=== PATIENT | female | born 1980 | race Caucasian/White ===

== ENCOUNTER 2017-05-08 07:26 | Emergency (ER) | payer MEDICAID ==
[~2017-05-08] VITALS: Ht 152.4 cm; Wt 77.0 kg
[~2017-05-08 07:26] MED LIST: ALBU18HF INHALATION; AZIT250T94 PO; PRED20TA PO
[2017-05-08 07:31] VITALS: Ht 152.4 cm; Wt 77.0 kg
[2017-05-08] MEDS ORDERED: FLUORESCEIN STRIP LEFT EYE ONE (08:00)
[2017-05-08] MEDS ORDERED: HYDR-845 PO (08:30)
[2017-05-08] MEDS ORDERED: POLY10DR19 BOTH EYES (08:30)
[2017-05-08] MEDS ORDERED: hydrOXYzine HCL 25 MG TAB PO ONE (08:30)
--- NOTE | 2017-05-08 08:33 | ERD ---
ER Documentation Chief Complaint Date/Time DATE: 05/08/17 TIME: 08:31 Chief Complaint RIGHT EYE REDNESS WITH DRAINAGE HPI This 36-year-old female presents for eye redness that began around 8:00 yesterday and is been very itchy. She does not think that she struck her eye with anything and does not have pain mortise itchiness. This morning she noticed that the patient has had spread to the left eye as well as some of the redness. She had a some discharge with some crustiness this morning. Her vision is not affected. ROS All systems reviewed and are negative except as per history of present illness. Medications Home Meds Active Scripts Hydroxyzine Hcl* (Atarax*) 50 Mg Tab, 50 MG PO Q8H Y for ITCHING, #14 TAB Prov:MARTHA RAMÍREZ DO 05/08/17 Polymyxin B Sulfate-TMP* (Polymyxin B-TMP Eye Drops*) 10 Ml Drops, 1 DROP BOTH EYES QID for 7 Days, EA Prov:MARTHA RAMÍREZ DO 05/08/17 Albuterol Sulfate* (Ventolin HFA*) 18 Gm Hfa.aer.ad, 2 PUFF INHALATION Q4H, #1 INHALER Prov:JHONY BISWAS 11/21/15 Prednisone* (Prednisone*) 20 Mg Tab, 40 MG PO DAILY for 4 Days, TAB Prov:JHONY BISWAS 11/21/15 Azithromycin* (Zithromax*) 250 Mg Tablet, 250 MG PO .ZPACK DIRECTED, #6 TAB TAKE 500 MG (2 TABS) THE FIRST DAY THEN 250 MG (1 TAB) DAYS 2-5 Prov:JHONY BISWAS 11/21/15 Allergies Allergies: Coded Allergies: No Known Allergy (Unverified , 05/08/17) PMhx/Soc History of Surgery: Yes (C SECTION ) Anesthesia Reaction: No Hx Neurological Disorder: No Hx Respiratory Disorders: No Hx Cardiac Disorders: Yes (htn) Hx Psychiatric Problems: No Hx Miscellaneous Medical Probl: No Hx Alcohol Use: Yes Hx Substance Use: No Hx Tobacco Use: No Physical Exam Vitals Vital Signs Date Time Temp Pulse Resp B/P Pulse Ox O2 Delivery O2 Flow Rate FiO2 05/08/17 07:31 98.0 79 18 143/86 98 Physical Exam Const: [] No distress Head: Atraumatic Eyes: Erythematous conjunctiva with leyla-limbic sparing of the right eye, medial conjunctival injection of the left eye. On fluorescein staining in Peridot's exam there is no fluorescein uptake consistent with any corneal abrasion or laceration. Normal funduscopic exam. ENT: Normal External Ears, Nose and Mouth. Results 24 hrs Current Medications Medications (Trade) Dose Ordered Sig/Edelmira Route PRN Reason Start Time Stop Time Status Last Admin Dose Admin Fluorescein Sodium (Pipcb-S-Pylsj) 1 strip ONCE ONCE LEFT EYE 05/08/17 08:00 05/08/17 08:01 DC Hydroxyzine HCl (Atarax) 25 mg ONCE ONCE PO 05/08/17 08:30 05/08/17 08:31 Procedures/MDM Infectious conjunctivitis. Going to give patient Atarax for itching. 25 mg given the emergency room also given a prescription for Atarax as well as for Polytrim eyedrops. Departure Diagnosis: Primary Impression: Conjunctivitis of both eyes Condition: Stable Patient Instructions: Conjunctivitis Caused by Infection Additional Instructions: Llame al doctor MAANA y wally wendy CAROL PARA DENTRO DE 2-3 STONER.Dgale a la secretaria que nosotros le instruimos hacer esta carol.Avise o llame si greene condicin se empeora antes de la carol. Regresa aqui si peor o no mejor. MARTHA RAMÍREZ DO May 08, 2017 08:33
== END 2017-05-08 09:03 | disposition home or self-care (01) ==
LOC: FTE 07:26
DX: H10.9 Unspecified conjunctivitis (principal); I10 Essential (primary) hypertension
CPT/HCPCS: Z7610 ×2; 99284

== ENCOUNTER 2018-10-28 09:09 | Emergency (ER) | payer MEDICAID ==
[~2018-10-28] VITALS: Ht 162.6 cm; Wt 75.3 kg
[~2018-10-28 09:09] MED LIST changes: +AZIT250T PO; -AZIT250T94 PO; +HYDR-845 PO; +POLY10DR19 BOTH EYES
[2018-10-28 09:11] VITALS: Ht 162.6 cm; Wt 75.3 kg
[2018-10-28] MEDS ORDERED: ONDANSETRON (ODT) 4 MG TAB ODT STA (09:23)
[2018-10-28] MEDS ORDERED: NICARDipine HCL 30 MG CAPSULE PO ONE (09:30)
[2018-10-28] MEDS ORDERED: HYDROCODONE/APAP (10/325) TAB PO ONE (09:30)
[2018-10-28] MEDS ORDERED: MECLIZINE 12.5 MG TAB PO ONE (09:30)
[2018-10-28] MEDS ORDERED: IBUP-1542 PO (11:55)
[2018-10-28 12:01] VITALS: BP 109/61; PULSE 79; RESP 20
--- NOTE | 2018-10-28 13:13 | ERD ---
ER Documentation Chief Complaint Chief Complaint HEADACHE , DIZZINESS , NAUSEA X 2 DAYS H/O HTN , DIDN'T TOOK MEDS TODAY HPI Patient is a 37-year-old female with hypertension who presents with dizziness. She also has a headache. She said the symptoms started yesterday but have been worsening. She tried Tylenol. She has no fevers but reported chills. She has nausea but no vomiting. She did not take her blood pressure medications this m orning. Upon review of old medical records this is the patient's fourth visit to the ER since 2016. She does not know the name of her primary doctor. ROS All systems reviewed and are negative except as per history of present illness. Medications Home Meds Active Scripts Ibuprofen* (Motrin*) 600 Mg Tab, 600 MG PO Q6H PRN for PAIN AND OR ELEVATED TEMP, #30 TAB Prov:LISA LOU MD 10/28/18 Hydroxyzine Hcl* (Atarax*) 50 Mg Tab, 50 MG PO Q8H PRN for ITCHING, #14 TAB Prov:MARTHA RAMÍREZ DO 05/08/17 Polymyxin B Sulfate-TMP* (Polymyxin B-TMP Eye Drops*) 10 Ml Drops, 1 DROP BOTH EYES QID for 7 Days, EA Prov:MARTHA RAMÍREZ DO 05/08/17 Albuterol Sulfate* (Ventolin HFA*) 18 Gm Hfa.aer.ad, 2 PUFF INHALATION Q4H, #1 INHALER Prov:JHONY BISWAS 11/21/15 Prednisone* (Prednisone*) 20 Mg Tab, 40 MG PO DAILY for 4 Days, TAB Prov:JHONY BISWAS 11/21/15 Azithromycin* (Zithromax*) 250 Mg Tablet, 250 MG PO .ZPACK DIRECTED, #6 TAB TAKE 500 MG (2 TABS) THE FIRST DAY THEN 250 MG (1 TAB) DAYS 2-5 Prov:JHONY BISWAS 11/21/15 Allergies Allergies: Coded Allergies: No Known Allergy (Unverified , 05/08/17) PMhx/Soc History of Surgery: Yes (C SECTION ) Anesthesia Reaction: No Hx Neurological Disorder: No Hx Respiratory Disorders: No Hx Cardiac Disorders: Yes (htn) Hx Psychiatric Problems: No Hx Miscellaneous Medical Probl: No Hx Alcohol Use: Yes Hx Substance Use: No Hx Tobacco Use: No Smoking Status: Never smoker FmHx Family History: diabetes Physical Exam Vitals Vital Signs Date Temp Pulse Resp B/P (MAP) Pulse Ox O2 O2 Flow FiO2 Time Delivery Rate 10/28/18 79 20 109/61 98 Room Air 12:01 (77) 10/28/18 83 20 127/79 99 Nasal 2.0 11:09 (95) Cannula 10/28/18 85 20 150/92 96 Room Air 10:05 (111) 10/28/18 98.2 89 18 172/100 98 09:11 (124) Physical Exam Const: Mild distress secondary to nausea Head: Atraumatic Eyes: Normal Conjunctiva ENT: Normal External Ears, Nose and Mouth. Neck: Full range of motion. No meningismus. Resp: Clear to auscultation bilaterally Cardio: Regular rate and rhythm, no murmurs Abd: Soft, non tender, non distended. Normal bowel sounds Skin: No petechiae or rashes Back: No midline or flank tenderness Ext: No cyanosis, or edema Neur: Awake and alert, no slurred speech, cranial nerves II through XII are intact, strength is 5 out of 5 in all 4 extremities Psych: Normal Mood and Affect Results 24 hrs Laboratory Tests Test 10/28/18 11:29 10/28/18 11:30 POC Beta HCG, Qualitative NEGATIVE Urine Test NEGATIVE Current Medications Medications Dose Sig/Edelmira Start Time Status Last (Trade) Ordered Route PRN Stop Time Admin Dose Reason Admin Nicardipine 30 mg ONCE ONCE 10/28/18 DC 10/28/18 HCl PO 09:30 09:34 (Cardene) 10/28/18 09:31 1 tab ONCE ONCE 10/28/18 DC 10/28/18 Acetaminophen PO 09:30 09:33 / 10/28/18 09:31 Hydrocodone Bitart ([place] (10/325)) Ondansetron 4 mg ONCE STAT 10/28/18 DC 10/28/18 HCl (Zofran ODT 09:23 09:34 Odt) 10/28/18 09:25 Meclizine 25 mg ONCE ONCE 10/28/18 DC 10/28/18 HCl PO 09:30 09:33 (Antivert) 10/28/18 09:31 Procedures/MDM CT brain negative per radiology. Patient is a 37-year-old female with hypertension who presents with headache and dizziness. CT head was negative for mass or bleed. I doubt stroke, subarachnoid hemorrhage, or intracranial mass. I believe outpatient management is appropriate at this time. test is negative I doubt or ectopic . The patient can take Motrin for pain. She can return for any worsening symptoms. She should follow-up with her primary doctor within 24 hours for reevaluation. Departure Diagnosis: Primary Impression: HTN (hypertension) Hypertension type: essential hypertension Qualified Codes: I10 - Essential (primary) hypertension Additional Impression: Headache Headache type: unspecified Headache chronicity pattern: acute headache Intractability: not intractable Qualified Codes: R51 - Headache Condition: Fair Patient Instructions: Self-Care for Headaches, High Blood Pressure (Hypertension) Referrals: Your doctor Additional Instructions: Llame al doctor MAANA y wally wendy CAROL PARA DENTRO DE 1-2 STONER.Dgale a la secretaria que nosotros le instruimos hacer esta carol.Avise o llame si greene condicin se empeora antes de la carol. Regresa aqui si peor o no mejor. LISA LOU MD Oct 28, 2018 13:13
== END 2018-10-28 12:32 | disposition home or self-care (01) ==
LOC: E/R 09:09
DX: I10 Essential (primary) hypertension (principal); R40.2142 Coma scale, eyes open, spontaneous, at arrival to emergency department; R40.2252 Coma scale, best verbal response, oriented, at arrival to emergency department; R40.2362 Coma scale, best motor response, obeys commands, at arrival to emergency department
CPT/HCPCS: 70450; 81025; 84703; Z7502; Z7610

== ENCOUNTER 2019-06-06 17:11 | Emergency (ER) | payer MEDICAID ==
[~2019-06-06] VITALS: Ht 157.5 cm; Wt 73.3 kg
[~2019-06-06 17:11] MED LIST changes: +ACET325T33 PO; +IBUP-1542 PO; +ONDA4TAB8 PO; +RANI150T35 PO
[2019-06-06 17:15] VITALS: BP 133/82; PULSE 116; RESP 19; Ht 157.5 cm; Wt 73.3 kg
== END 2019-06-06 17:52 | disposition home or self-care (01) ==
LOC: E/R 17:11
DX: K52.9 Noninfective gastroenteritis and colitis, unspecified (principal); I10 Essential (primary) hypertension
CPT/HCPCS: 99283